=== PATIENT | male | born 1995 | race African-American/Black ===

== ENCOUNTER 2018-10-04 03:25 | Emergency (ER) | payer SELFPAY ==
[~2018-10-04] VITALS: Ht 172.7 cm; Wt 83.9 kg
--- NOTE | 2018-10-04 03:25 | NUR ---
pt to er [facility] from home for anxiety s/p marijuana use. no immediate signs of distress noted. pt to er bed 7 and connected to monitor. pt vital signs stable. dr edouard at bedside for exam.
[2018-10-04] MEDS ORDERED: LORAZEPAM 1 MG TABLET ONE (03:56)
[2018-10-04] MEDS ORDERED: LORAZEPAM 1 MG TABLET PO ONE (04:00)
--- NOTE | 2018-10-04 05:20 | NUR ---
pt resting comfortably in [facility]. no signs of distress noted. will cont to monitor pt.
--- NOTE | 2018-10-04 06:17 | NUR ---
pt ok to discharge per dr edouard. Patient discharged to home in stable condition. Written and verbal after care instructions given. Patient verbalizes understanding of instruction.Patient is awake and alert to self, day, and place. pt ambulatory with a steady gait.
[2018-10-04 06:19] VITALS: BP 125/71
== END 2018-10-04 06:20 | disposition home or self-care (01) ==
LOC: ER 03:28
DX: F41.9 Anxiety disorder, unspecified (principal); F12.10 Cannabis abuse, uncomplicated; E11.9 Type 2 diabetes mellitus without complications; Z98.890 Other specified postprocedural states
CPT/HCPCS: 80305; 82962-TC